=== PATIENT | female | born 1945 | race Caucasian/White ===

== ENCOUNTER 2022-12-25 08:19 | Outpatient (CLI) | payer MEDICARE, OTHER, SELFPAY ==
--- NOTE | 2023-01-09 23:36 | WPDSLEEPSTUD ---
Sleep Study Date of Study: 12/25/22 Ordering Provider: Marlon Kennedy, [employer] Interpreting Physician: Tiffany Aguilera DO Sleep Study Type: Polysomnogram Height: 1.68 m Weight: 104.326 kg Body Mass Index: 37.1 Neck Circumference (inches): 16 [place]: 5 Reason for Sleep Study Snoring, unrefreshing sleep Sleep History The patient is a 77 year old female who was previously diagnosed with sleep apnea in 2005. She was on CPAP and a mandibular advancement device in the past but lost weight which resolved her sleep apnea. She states that she has been snoring in the past 2 years after gaining weight. The patient occasionally awakens from sleep short of breath. She rarely awakens at night with heartburn, belching or cough. She constantly snores loud enough that others complain. She frequently has trouble sleeping when she has a cold. She rarely wakes up gasping for air throughout the night. She occasionally had breathing problems at night observed by herself or others. She occasionally sweats excessively at night. She occasionally has heart palpitations or irregular heartbeats during the night. She occasionally falls asleep during the day but never while driving. She occasionally has trouble at school or work due to sleepiness. She denies sleep paralysis. She occasionally experiences vivid dreamlike scenes upon awakening or falling asleep. She denies feeling afraid going to sleep. She rarely has nightmares. She occasionally remembers her dreams. She occasionally has thoughts racing through her mind. She occasionally feels sad, depressed and anxious. She rarely has muscular tension. She occasionally notices parts of her body jerk. She occasionally kicks during the night. She occasionally has crawling and aching feelings in her legs and frequently has leg pain during the night. She occasionally grinds her teeth during sleep but never awakens with morning jaw pain. She is occasionally bothered by pain during the day but rarely awakened by pain during the night. She occasionally wakes up feeling stiff in the morning. She occasionally wakes up with sore or achy muscles. She occasionally wakes up with pain in the neck, spine or other joints. She goes to bed at 9:30 p.m. on both weekdays and weekends. She can fall asleep relatively quickly. She wakes up 3-4 times throughout the night to urinate and is able to fall back asleep relatively quickly. She wakes up at 7:00 a.m. on both weekdays and weekends. She typically gets 9 hours of sleep per night. She does not stay in bed for longer than 5 minutes after waking up in the morning. She currently lives with her . She denies consuming any caffeinated beverages within 2 hours of bedtime. She denies engaging in physical exercise before bedtime. She will read before falling asleep. She will take naps in the afternoon or the evening at least 2-3 times per week and they are refreshing. She has 2 cups of caffeinated beverage every morning. She rarely consumes alcohol. She denies tobacco and recreational drug use. [facility] [place] Family History Family History (Updated 10/30/13 @ 07:13 by DOCTOR UNKNOWN) Grandparent Cerebrovascular accident Family history of heart disease in male family member before age 55 Father Family history of lung cancer Family history of heart disease in male family member before age 55 Sibling Family history of lung cancer Mother Family history of dementia Social History Social History Smoking status: Never smoker Alcohol intake: never Sleep Procedure A full night polysomnogram using the [employer] multi-channel system recorded the standard physiologic parameters including EEG, EOG, submentalis EMG, anterior tibialis EMG, EKG, body position, nasal and oral airflow using nasal pressure sensor and thermistor.? Respiratory parameters of chest and abdominal movements were recorded with Respiratory Inductance Plethysmography belts. Oxygen saturati
[2023-01-10] VITALS: BMI 37.1
== END 2022-12-26 06:45 | disposition home or self-care (01) ==
LOC: ANHCSM 08:21
PROVIDERS: Visit Provider Nurse Practitioner Family
DX: G47.30 Sleep apnea, unspecified (principal); G47.33 Obstructive sleep apnea (adult) (pediatric); G47.61 Periodic limb movement disorder
CPT/HCPCS: 95810

== ENCOUNTER 2023-02-01 08:22 | Outpatient (CLI) | payer MEDICARE, OTHER, SELFPAY ==
--- NOTE | 2023-02-05 18:56 | WPDSLEEPSTUD ---
Sleep Study Date of Study: 02/01/23 Ordering Provider: Marlon Kennedy, INVESTMENT OFFICER Interpreting Physician: Tiffany Aguilera, DO Sleep Study Type: CPAP Titration Height: 1.7 m Weight: 104.355 kg Body Mass Index: 36.0 Neck Circumference (inches): 16 [place]: 5 Reason for Sleep Study The patient had a polysomnogram on 12/25/2022 that showed an overall AHI of 48.1 with desaturation down to 79%. She spent over 2 hours with an SpO2<88%. Sleep History The patient is a 77 year old female who was previously diagnosed with sleep apnea in 2005. She was on CPAP and a mandibular advancement device in the past but lost weight which resolved her sleep apnea. She states that she has been snoring in the past 2 years after gaining weight. The patient occasionally awakens from sleep short of breath.? She rarely awakens at night with heartburn, belching or cough.? She constantly snores loud enough that others complain.? She frequently has trouble sleeping when she has a cold.? She rarely wakes up gasping for air throughout the night.? She occasionally had breathing problems at night observed by herself or others.? She occasionally sweats excessively at night.? She occasionally has heart palpitations or irregular heartbeats during the night.? She occasionally falls asleep during the day but never while driving.? She occasionally has trouble at school or work due to sleepiness.? She denies sleep paralysis.? She occasionally experiences vivid dreamlike scenes upon awakening or falling asleep.? She denies feeling afraid going to sleep.? She rarely has nightmares.? She occasionally remembers her dreams.? She occasionally has thoughts racing through her mind.? She occasionally feels sad, depressed and anxious.? She rarely has muscular tension.??She occasionally notices parts of her body jerk.? She occasionally kicks during the night.? She occasionally has crawling and aching feelings in her legs and frequently has leg pain during the night.? She occasionally grinds her teeth during sleep but never awakens with morning jaw pain.? She is occasionally bothered by pain during the day but rarely awakened by pain during the night.? She occasionally wakes up feeling stiff in the morning.? She occasionally wakes up with sore or achy muscles.? She occasionally wakes up with pain in the neck, spine or other joints.? She goes to bed at 9:30 p.m. on both weekdays and weekends.? She can fall asleep relatively quickly.? She wakes up 3-4 times throughout the night to urinate and is able to fall back asleep relatively quickly.? She wakes up at 7:00 a.m. on both weekdays and weekends.? She typically gets 9 hours of sleep per night.? She does not stay in bed for longer than 5 minutes after waking up in the morning.? She currently lives with her .? She denies consuming any caffeinated beverages within 2 hours of bedtime.? She denies engaging in physical exercise before bedtime.? She will read before falling asleep.? She will take naps in the afternoon or the evening at least 2-3 times per week and they are refreshing.? She has 2 cups of caffeinated beverage every morning.? She rarely consumes alcohol.? She denies tobacco and recreational drug use. [facility] Family History Family History Grandparent Cerebrovascular accident Family history of heart disease in male family member before age 55 Father Family history of lung cancer Family history of heart disease in male family member before age 55 Sibling Family history of lung cancer Mother Family history of dementia Social History Social History Smoking status: Never smoker Alcohol intake: never Sleep Procedure A full night polysomnogram using the [employer] multi-channel system recorded the standard physiologic parameters including EEG, EOG, submentalis EMG, anterior tibialis EMG, EKG, body position, nasal and oral airf
[2023-02-05 19:05] VITALS: BMI 36.0
== END 2023-02-02 07:03 | disposition home or self-care (01) ==
LOC: ANHCSM 08:23
PROVIDERS: Visit Provider Nurse Practitioner Family
DX: G47.33 Obstructive sleep apnea (adult) (pediatric) (principal); G47.61 Periodic limb movement disorder
CPT/HCPCS: 95811

== ENCOUNTER 2023-10-05 05:09 | Emergency (ER) | payer MEDICARE, OTHER, SELFPAY ==
--- NOTE | ~2023-10-05 | XR_ITS ---
Clinical Indication: Hypertension PA and lateral views of the chest: Comparison: None Findings: Probable retrocardiac airspace disease present. Right lung clear. Calcified right paratrach eal lymph nodes are present. Cardiomediastinal silhouette is within normal limits. Bones and soft ti ssues are unremarkable. Impression: Possible hazy left basilar airspace disease. Correlate for atelectasis or pneumonia. Reviewed, dictated and finalized at location . Impression: Possible hazy left basilar airspace disease. Correlate for atelectasis or pneum onia.
[2023-10-05 05:12] VITALS: BP 221/88; PULSE 102; RESP 16; TEMP 36.2; O2SAT 98
--- NOTE | 2023-10-05 05:31 | ECG_ITS ---
Test Date: 2023-10-05 05:36:56 Measurements Intervals [place] Rate: 81 P: 4 NM: 224 QRS: -18 QRSD: 86 T: 14 QT: 380 QTc: 441 Interpretive Statements SINUS RHYTHM WITH FIRST DEGREE AV BLOCK POSSIBLE LEFT ATRIAL ENLARGEMENT [-0.1mV P WAVE IN V1/V2] LOW QRS VOLTAGE IN PRECORDIAL LEADS [QRS DEFLECTION < 1.0 mV IN CHEST LEADS] POOR R-WAVE PROGRESSION INFERIOR MYOCARDIAL INFARCTION , PROBABLY OLD [40+ ms Q WAVE AND/OR ST/T ABNORMALITY IN II/aVF] ABNORMAL ECG No previous ECG available for comparison Electronically Signed On 10-05-2023 11:31:33 CDT by Nehemiah Nascimento M.D.
[2023-10-05 06:10] LABS: Basophils Absolute Auto 0.1 K/mm3 (0.0-0.1); Basophils Percent Auto 0.5 % (0.2-1.2); Eosinophils Absolute Auto 0.3 K/mm3 (0-0.3); Eosinophils Percent Auto 3.4 % (0-4.4); Hematocrit 42.9 % (37.0-47.0); Hemoglobin 13.9 g/dL (12.0-15.0); Immature Granulocyte Absolute 0.04 K/mm3 (0.00-0.031); Immature Granulocyte Percent A 0.4 % (0-0.5); Lymphocytes Absolute Auto 3.15 K/mm3 (0.9-3.2); Lymphocytes Percent Auto 31.8 % (18.3-44.2); Mean Corpuscular HGB Conc 32.4 g/dl (32-36); Mean Corpuscular Volume 89.4 fl (80-100); Mean Platelet Volume 9.8 fl (7.4-10.4); Monocytes Absolute Auto 0.9 K/mm3 (0.1-0.6); Monocytes Percent Auto 8.9 % (2.6-8.5); Neutrophils Absolute Auto 5.5 K/mm3 (1.3-6.7); Platelet Count Result 308 k/mm3 (150-375); Red Cell Distribution Width 13.4 % (11.5-14.5); White Blood Count 9.9 K/mm3 (4.5-10.0)
[2023-10-05 06:17] VITALS: BP 103/47; PULSE 75; RESP 17; O2SAT 93
[2023-10-05 06:21] LABS: Prothrombin Time 13.8 Seconds (11.1-14.7)
[2023-10-05 06:22] LABS: Partial Thromboplastin Time 29.8 Seconds (22.3-36.8)
[2023-10-05 06:26] LABS: Alanine Aminotransferase 22 U/L (6-35); Albumin Level 4.5 g/dL (3.5-5.1); Alkaline Phosphatase 66 U/L (38-126); Anion Gap 13 mmol/L (4-12); Aspartate Amino Transferase 24 U/L (14-36); Bilirubin,Total 0.7 mg/dL (0.2-1.3); Blood Urea Nitrogen 20 mg/dL (7-17); Calcium 9.8 mg/dL (8.4-10.2); Carbon Dioxide 25 mmol/L (22-30); Chloride 102 mmol/L (98-107); Estimated CRCL calculation 82 ml/min; Estimated Glomerular Filt Rate > 60; Glucose 109 mg/dL (65-110); Lipase 50 U/L (23-300); Potassium 3.8 mmol/L (3.4-5.0); Sodium 140 mmol/L (137-145)
[2023-10-05 06:38] LABS: Troponin I < 0.012 ng/mL (0.000-0.034)
[2023-10-05 07:17] VITALS: BP 131/69; PULSE 72; RESP 16; O2SAT 95
[2023-10-05 07:32] VITALS: BP 125/46; PULSE 74; RESP 16; O2SAT 94
[2023-10-05 08:02] VITALS: BP 148/68; PULSE 73; RESP 16; O2SAT 96
--- NOTE | 2023-10-05 08:02 | ED.GENADULT ---
HPI - General Adult General Chief complaint: Unspecified Stated complaint: high blood pressure Time Seen by Provider: 10/05/23 07:07 History of Present Illness HPI narrative: Patient is a 77-year-old female who presents ER with elevated blood pressure readings. Ongoing over last few days. She has been checking at home. Last night it was in the 200s. Patient has no chest pain or shortness of breath. Had minor posterior headache last night when she checked her blood pressure. She did take an extra dose of amlodipine before going to bed. She has follow-up with her PCP today. Related Data Allergies Allergy/AdvReac Type Severity Reaction Status Date / Time No Known Allergies Allergy Verified 10/05/23 06:27 Review of Systems Review of Systems: All systems reviewed & are unremarkable except as noted in HPI and below Cardiovascular: Cardiovascular: Reports no additional cardiovascular complaints Respiratory: Respiratory: Reports no additional respiratory complaints Gastrointestinal: Gastrointestinal: Reports no additional gastrointestinal complaints Genitourinary: Genitourinary: Reports no additional female genitourinary complaints Neurologic: Reports headache(s), Denies focal weakness, Denies loss of vision and Denies numbness PMFSH Past Medical History Medical History (Updated 10/05/23 @ 18:38 by Anup Foss MD) Hypertension VALENTIN (obstructive sleep apnea) Family History Family History Grandparent Cerebrovascular accident Family history of heart disease in male family member before age 55 Father Family history of lung cancer Family history of heart disease in male family member before age 55 Sibling Family history of lung cancer Mother Family history of dementia Social History Social History Smoking status: Never smoker Alcohol intake: never Exam Narrative: GENERAL: Well-appearing, well-nourished, and in no acute distress. HEAD: Normocephalic, atraumatic. ENT: Mucous membranes moist. CHEST: Clear to auscultation. No respiratory distress. HEART: Regular rate and rhythm. Normal peripheral pulses. ABDOMEN: Soft, nontender, nondistended. EXTREMITIES: Normal range of motion. No edema. SKIN: Warm, dry, no rash. NEURO: Alert and oriented x3. PSYCH: Normal mood and affect. Course Vital Signs Vital signs: Vital Signs Temperature 97.2 F L 10/05/23 05:12 Pulse Rate 102 H 10/05/23 05:12 Respiratory Rate 16 10/05/23 05:12 Blood Pressure 221/88 H 10/05/23 05:12 Pulse Oximetry 98 10/05/23 05:12 Oxygen Delivery Room Air 10/05/23 05:12 Temperature 97.4 F L 10/05/23 08:20 Pulse Rate 76 10/05/23 08:20 Respiratory Rate 18 10/05/23 08:20 Blood Pressure 137/62 10/05/23 08:20 Pulse Oximetry 65 L 10/05/23 08:20 Oxygen Delivery Room Air 10/05/23 05:12 Medical Decision Making MDM Narrative Medical decision making narrative: -Course: Resting comfortably. Hypertension resolved on its own. No symptoms. -Co-morbidities complicating care: Hypertension -Social determinants of health: Lives at home -Hx from independent Sources: Patient -Independent interpretation of studies: Normal CBC/CMP/coags/troponin. Chest x-ray with atelectasis. No symptoms of pneumonia. -Interventions: None -Shared decision making / Disposition: Discharged home. Vital Signs Vital Signs: Vital Signs Temperature 97.2 F L 10/05/23 05:12 Pulse Rate 102 H 10/05/23 05:12 Respiratory Rate 16 10/05/23 05:12 Blood Pressure 221/88 H 10/05/23 05:12 Pulse Oximetry 98 10/05/23 05:12 Oxygen Delivery Room Air 10/05/23 05:12 Temperature 97.4 F L 10/05/23 08:20 Pulse Rate 76 10/05/23 08:20 Respiratory Rate 18 10/05/23 08:20 Blood Pressure 137/62 10/05/23 08:20 Pulse Oximetry 65 L 10/05/23 08:20 Oxygen Delivery Room Air
[2023-10-05 08:20] VITALS: BP 137/62; PULSE 76; RESP 18; TEMP 36.3; O2SAT 65
== END 2023-10-05 08:20 | disposition home or self-care (01) ==
PROVIDERS: Emergency Medicine; Emergency Provider Emergency Medicine; PCP Nurse Practitioner Family
DX: I10 Essential (primary) hypertension (principal); G47.33 Obstructive sleep apnea (adult) (pediatric); I44.0 Atrioventricular block, first degree; R94.31 Abnormal electrocardiogram [ECG] [EKG]; R91.8 Other nonspecific abnormal finding of lung field; Z79.899 Other long term (current) drug therapy
CPT/HCPCS: 36415; 71046; 80053; 83690; 84484; 85025; 85610; 85730; 93005; 99284